=== PATIENT | female | born 1980 | race Caucasian/White ===

== ENCOUNTER 2020-08-26 18:58 | Emergency (ER) | payer MEDICAID ==
[~2020-08-26] VITALS: Ht 175.3 cm; Wt 75.9 kg
[2020-08-26] MEDS ORDERED: IBUPROFEN 600 MG TABLET PO ONE (21:00)
[2020-08-26 21:40] VITALS: BP 104/63
== END 2020-08-26 22:09 | disposition home or self-care (01) ==
LOC: EMS 18:58
DX: S83.92XA Sprain of unspecified site of left knee, initial encounter (principal); X50.1XXA Overexertion from prolonged static or awkward postures, initial encounter; Y93.89 Activity, other specified; Y92.89 Other specified places as the place of occurrence of the external cause; Y99.8 Other external cause status
CPT/HCPCS: 29505; 29530; 99283

== ENCOUNTER 2021-03-06 18:34 | Emergency (ER) | payer MEDICAID ==
[~2021-03-06] VITALS: Ht 167.6 cm; Wt 76.4 kg
[2021-03-06] MEDS ORDERED: CYCLOBENZAPRINE HCL 10 MG TABLET PO ONE (22:15)
[2021-03-06] MEDS ORDERED: KETOROLAC TROMETHAMINE 30 MG/ML VIAL IVP ONE (22:15)
[2021-03-06 22:26] LABS: BASOPHILS % (AUTO) 0.6 % (0.0-2.0); EOSINOPHILS % (AUTO) 1.7 % (1.0-6.0); HEMATOCRIT 39.2 % (36-46); HEMOGLOBIN 13.1 g/dL (12.0-16.0); LYMPHOCYTES # (AUTO) 2.3 K/uL (1.0-4.8); LYMPHOCYTES % (AUTO) 42.8 % (22.0-44.0); MEAN CORPUSCULAR HEMOGLOBIN 32.9 pg (26.0-34.0); MEAN CORPUSCULAR HGB CONC 33.5 G/dL (31.0-37.0); MEAN CORPUSCULAR VOLUME 99 fL (80-100); MONOCYTES # (AUTO) 0.6 K/uL (0.1-1.0); MONOCYTES % (AUTO) 10.4 % (2.0-9.0); NEUTROPHILS # (AUTO) 2.4 K/uL (1.8-7.7); NEUTROPHILS % (AUTO) 44.5 % (40.0-70.0); PLATELET COUNT (AUTO) 181 K/uL (150-450); RED BLOOD CELL COUNT(AUTO) 3.98 MIL/uL (4.00-5.20); RED CELL DISTRIBUTION WIDTH 12.4 % (11.5-14.5)
[2021-03-06 22:28] LABS: COVID AG,FIA SOURCE NASOPHARYNGEAL
[2021-03-06] MEDS ORDERED: KETOROLAC TROMETHAMINE 30 MG/ML VIAL IM ONE (22:30)
[2021-03-06 22:37] LABS: ANION GAP 8 mmol/L (8-16); CALCIUM, TOTAL 8.8 mg/dL (8.8-10.5); CARBON DIOXIDE 28 mmol/L (22-29); CHLORIDE 105 mmol/L (98-107); CREATININE 0.74 mg/dL (0.60-1.30); GLOMERULAR FILTR. RATE CALC > 60 mL/min (>60); GLUCOSE,RANDOM 98 mg/dL (70-110); POTASSIUM 4.3 mmol/L (3.5-5.1); SODIUM SERUM 141 mmol/L (136-145); UREA NITROGEN, BLOOD 16 mg/dL (7-18)
[2021-03-06 22:48] LABS: HCG,QUANTITATIVE < 1 mIU/mL (0-6)
[2021-03-07] MEDS ORDERED: HYDROCODONE/ACETAMINOPHEN 5-325 MG TABLET PO ONE (00:15)
[2021-03-07] MEDS ORDERED: PredniSONE 20 MG TABLET PO ONE (00:15)
[2021-03-07 00:50] VITALS: BP 110/70
== END 2021-03-07 01:02 | disposition home or self-care (01) ==
LOC: EMS 18:34
DX: M54.12 Radiculopathy, cervical region (principal); Z20.822 Contact with and (suspected) exposure to COVID-19
CPT/HCPCS: 36415; 71045; 80048; 84484; 84702; 85025; 87426; 93005; 96372; 99285; J1885; J7512

== ENCOUNTER 2021-05-26 18:50 | Emergency (ER) | payer MEDICAID ==
[~2021-05-26] VITALS: Ht 170.2 cm; Wt 80.0 kg
[2021-05-26 20:20] VITALS: BP 124/69
== END 2021-05-26 20:22 | disposition home or self-care (01) ==
LOC: EMS 19:06
DX: S13.4XXA Sprain of ligaments of cervical spine, initial encounter (principal); M54.9 Dorsalgia, unspecified; V49.49XA Driver injured in collision with other motor vehicles in traffic accident, initial encounter; Y93.89 Activity, other specified; Y92.89 Other specified places as the place of occurrence of the external cause; Y99.8 Other external cause status
CPT/HCPCS: 99281; Z7502

== ENCOUNTER 2025-02-25 02:32 | Emergency (ER) | payer MEDICAID, OTHER ==
[~2025-02-25] VITALS: Ht 175.3 cm; Wt 72.7 kg
[2025-02-25 02:35] VITALS: TEMP 98.8
[2025-02-25] MEDS: ONDANSETRON HCL 4 MG/2 ML VIAL IVP ONE (03:21)
[2025-02-25 05:15] VITALS: BP 119/82; PULSE 89; RESP 17; O2SAT 98
== END 2025-02-25 05:37 | disposition home or self-care (01) ==
LOC: EMS 02:32
DX: S00.03XA Contusion of scalp, initial encounter (principal); F10.129 Alcohol abuse with intoxication, unspecified; R11.10 Vomiting, unspecified; Z88.0 Allergy status to penicillin; W22.8XXA Striking against or struck by other objects, initial encounter; Y93.89 Activity, other specified; Y92.89 Other specified places as the place of occurrence of the external cause; Y99.8 Other external cause status; Y90.9 Presence of alcohol in blood, level not specified
CPT/HCPCS: 99285; 96374; 70450; J2405